=== PATIENT | male | born 1980 | race Caucasian/White ===

== ENCOUNTER 2020-06-05 16:06 | Emergency (ER) | payer OTHER ==
[2020-06-05 16:11] VITALS: RESP 18; TEMP 98.8
[2020-06-05] MEDS ORDERED: ONDANSETRON 4 MG/2 ML VIAL IVP STA (16:28)
[2020-06-05] MEDS ORDERED: SODIUM CHLORIDE 0.9% 2,000 ML IV STA (16:28)
[2020-06-05] MEDS ORDERED: KETOROLAC 15 MG/ML 1 ML VIAL IVP STA (16:28)
[2020-06-05 16:40] LABS: Appearance,Urine Cloudy (Clear); Bilirubin,Urine Negative (Negative); Blood,Urine Large (Negative); Color,Urine Red; Glucose,Urine (UA) Negative (Negative); Ketones,Urine Trace (Negative); Leukocyte Esterase,Urine Small (Negative); Mucus,Urine Moderate /hpf; Nitrite,Urine Negative (Negative); PH, Urine 5.5 (5.0-8.0); Protein,Urine 1+ (Negative); RBC,Urine >182 /hpf (0-5); Specific Gravity,Urine 1.026 (1.001-1.035); Urobilinogen,Urine <2.0 mg/dL (<2.0); WBC,Urine 2 /hpf (0-5)
[2020-06-05 16:52] LABS: Basophils # (A) 0.1 k/uL (0-0.2); Basophils % (A) 1 %; Eosinophils # (A) 0.2 k/uL (0-0.7); Eosinophils % (A) 2 %; HCT 46.9 % (39.0-53.0); HGB 16.5 gm/dL (13.0-17.5); Lymphocytes # (A) 2.1 k/uL (1.0-4.8); Lymphocytes % (A) 21 %; MCH 31.9 pg (25.0-35.0); MCHC 35.1 g/dL (31.0-37.0); MCV 90.7 fL (80.0-100.0); Mean Platelet Volume 8.2; Monocytes # (A) 0.5 k/uL (0-1.0); Monocytes % (A) 5 %; Neutrophils # (A) 7.2 k/uL (1.3-7.7); Neutrophils % (A) 70 %; Platelet Count 202 k/uL (150-450); RBC 5.17 m/uL (4.30-5.90); RDW 12.2 % (11.5-15.5); WBC 10.3 k/uL (3.8-10.6)
[2020-06-05 17:01] LABS: ALT 58 U/L (4-49); AST 58 U/L (17-59); African American GFR (CKD) >90 (>60 ml/min/1.73 sqM); Albumin 4.6 g/dL (3.5-5.0); Alkaline Phosphatase 64 U/L (38-126); Anion Gap 9 mmol/L; Blood Urea Nitrogen 11 mg/dL (9-20); Carbon Dioxide 24 mmol/L (22-30); Chloride 105 mmol/L (98-107); Glucose 109 mg/dL (74-99); Lipase 116 U/L (23-300); Non-African American GFR(CKD) >90 (>60 ml/min/1.73 sqM); Sodium 138 mmol/L (137-145); Total Bilirubin 1.2 mg/dL (0.2-1.3); Total Protein 7.9 g/dL (6.3-8.2)
[2020-06-05 17:02] LABS: Potassium 4.9 mmol/L (3.5-5.1)
--- NOTE | 2020-06-05 17:19 | ED ---
Abdominal Pain HPI - General Chief Complaint: Abdominal Pain Stated Complaint: poss kidney stones Time Seen by Provider: 06/05/20 16:12 Source: patient, RN notes reviewed Mode of arrival: ambulatory Limitations: no limitations - History of Present Illness Initial Comments: 39-year-old male presents emergency Department chief complaint left flank pain. Patient states started around 4 AM. Patient states she's had nausea vomiting no history kidney stones he states his urine is very dark and he states that he less urine output. No prior abdominal surgeries no fevers no chills no other complaints. - Related Data Previous Rx's Medication Instructions Recorded Hydrocodone/Acetaminophen [[place] 1 tab PO Q6HR PRN #12 tab 06/05/20 5-325] Ketorolac [Toradol] 10 mg PO Q8HR #15 tab 06/05/20 Ondansetron Odt [Zofran Odt] 4 mg PO Q8HR PRN #10 tab 06/05/20 Tamsulosin [Flomax] 0.4 mg PO DAILY #7 cap 06/05/20 Allergies Allergy/AdvReac Type Severity Reaction Status Date / Time No Known Allergies Allergy Verified 06/05/20 16:11 Review of Systems ROS Statement: Those systems with pertinent positive or pertinent negative responses have been documented in the HPI. ROS Other: All systems not noted in ROS Statement are negative. Past Medical History Past Medical History: No Reported History History of Any Multi-Drug Resistant Organisms: None Reported Past Surgical History: Orthopedic Surgery Past Psychological History: No Psychological Hx Reported Smoking Status: Current every day smoker Past Alcohol Use History: None Reported Past Drug Use History: None Reported General Exam General appearance: alert, in no apparent distress Head exam: Present: atraumatic, normocephalic, normal inspection Eye exam: Present: normal appearance, PERRL, EOMI. Absent: scleral icterus, conjunctival injection, periorbital swelling ENT exam: Present: normal exam, mucous membranes moist Neck exam: Present: normal inspection. Absent: tenderness, meningismus, lymphadenopathy Respiratory exam: Present: normal lung sounds bilaterally. Absent: respiratory distress, wheezes, rales, rhonchi, stridor Cardiovascular Exam: Present: regular rate, normal rhythm, normal heart sounds. Absent: systolic murmur, diastolic murmur, rubs, gallop, clicks GI/Abdominal exam: Present: soft, tenderness (Minimal left), normal bowel sounds. Absent: distended, guarding, rebound, rigid Back exam: Present: CVA tenderness (L). Absent: CVA tenderness (R) Course Vital Signs 06/05/20 06/05/20 16:09 17:50 Temperature 98.8 F Pulse Rate 100 70 Respiratory 18 18 Rate Blood Pressure 156/98 132/76 O2 Sat by Pulse 98 100 Oximetry Medical Decision Making - Medical Decision Making CT shows evidence of two 3 mm stones in the ureter. Patient's pain is controlled after Toradol. Patient's had no recurrence of vomiting. Patient was well-hydrated will be discharged with pain control, Flomax, antiemetics and follow-up with urology. - Lab Data Result diagrams: 06/05/20 16:47 06/05/20 16:47 Lab Results 06/05/20 06/05/20 06/05/20 Range/Units 16:24 16:47 16:47 WBC 10.3 (3.8-10.6) k/uL RBC 5.17 (4.30-5.90) m/uL Hgb 16.5 (13.0-17.5) gm/dL Hct 46.9 (39.0-53.0) % MCV 90.7 (80.0-100.0) fL MCH 31.9 (25.0-35.0) pg MCHC 35.1 (31.0-37.0) g/dL RDW 12.2 (11.5-15.5) % Plt Count 202 (150-450) k/uL MPV 8.2 Neutrophils % 70 % Lymphocytes % 21 % Monocytes % 5 % Eosinophils % 2 % Basophils % 1 % Neutrophils # 7.2 (1.3-7.7) k/uL Lymphocytes # 2.1 (1.0-4.8) k/uL Monocytes # 0.5 (0-1.0) k/uL Eosinophils # 0.2 (0-0.7) k/uL Basophils # 0.1 (0-0.2) k/uL Sodium 138 (137-145) mmol/L Potassium 4.9 (3.5-5.1) mmol/L Chloride 105 (98-107) mmol/L Carbon Dioxide 24 (22-30) mmol/L Anion Gap 9 mmol/L BUN 11 (9-20) mg/dL Creatinine 0.83 (0.66-1.25) mg/dL Est GFR (CKD-EPI)AfAm >90 (>60 ml/min/1.73 sqM) Est GFR (CKD-EPI)NonAf >90 (>60 ml/min/1.73 sqM) Glucose 109 H (74-99) mg/dL Calcium 9.0 (8.4-10.2) mg/dL Total Bilirubin 1.2 (0.2-1.3) mg/dL AST 58 (17-59) U/L ALT 58 H (4-49) U/L Alkaline Phosphatase 64 (38-126) U/L Total Protein 7.9 (6.3-8.2) g/dL Albumin 4.6 (3.5-5.0) g/dL Lipase 116 (23-300) U/L Urine Color Red Urine Appearance Cloudy (Clear) Urine pH 5.5 (5.0-8.0) Ur Specific [place] 1.026 (1.001-1.035) Urine Protein 1+ H (Negative) Urine Glucose (UA) Negative (Negative) Urine Ketones Trace H (Negative) Urine Blood Large H (Negative) Urine Nitrite Negative (Negative) Urine Bilirubin Negative (Negative) Urine Urobilinogen <2.0 (<2.0) mg/dL Ur Leukocyte Esterase Small H (Negative) Urine RBC >182 H (0-5) /hpf Urine WBC 2 (0-5) /hpf Urine Mucus Moderate H (None) /hpf Disposition Clinical Impression: Ureteral calculus, left Disposition: HOME SELF-CARE Condition: Stable Instructions (If sedation given, give patient instructions): Kidney Stones (ED) Additional Instructions: Please return to the Emergency Department if symptoms worsen or any other concerns. Prescriptions: Tamsulosin [Flomax] 0.4 mg PO DAILY #7 cap Hydrocodone/Acetaminophen [[place] 5-325] 1 tab PO Q6HR PRN #12 tab PRN Reason: Pain Ketorolac [Toradol] 10 mg PO Q8HR #15 tab Ondansetron Odt [Zofran Odt] 4 mg PO Q8HR PRN #10 tab PRN Reason: Nausea Is patient prescribed a controlled substance at d/c from ED?: Yes When asked, does pt state using other controlled substances?: No If prescribed controlled substance>3 days was MAPS reviewed?: Prescribed <3 Days If opioid is for acute pain is fill amount 7 days or less?: Yes If Rx opioid, was Start Talking consent form obtained?: Yes Referrals: None,Stated [Primary Care Provider] - 1-2 days Dylan Osorio MD [STAFF PHYSICIAN] - 1-2 days Time of Disposition: 18:04
--- NOTE | 2020-06-05 17:44 | CT ---
EXAMINATION TYPE: CT abdomen pelvis wo con DATE OF EXAM: 06/05/2020 COMPARISON: None HISTORY: Left flank pain CT DLP: 863.3 mGycm Automated exposure control for dose reduction was used. Images obtained from the diaphragm to the floor the pelvis without contrast. Lung bases are clear. There is no pleural effusion. There is some mild fatty infiltration of the live r. Spleen is intact. There is no pancreatic mass. The stomach is intact. Gallbladder appears normal. The bile ducts are not dilated. There is no adrenal mass. Kidneys have normal size. There is 3 mm calculus lower pole left kidney. Th ere are larger calculi lower pole left kidney that measure up to 5 mm. There appears to be 2 small ca lculi in the lower left ureter that measure 3 mm. The left ureter is not significantly dilated. There is mild fullness of the left renal pelvis compared to the right. I see no sign of obstruction on the right side. There is no retroperitoneal adenopathy. Appendix is posterior and appears normal. There are multiple sigmoid diverticula. There is no evidence of diverticulitis. The lumbar vertebra have normal alignment. Disc spaces are fairly normal. Posterior elements are inta ct. There is no compression fracture. Facet joints are intact. Bony pelvis is intact. Hip joints appe ar normal. IMPRESSION: 2 small obstructing calculi distal left ureter. Multiple left renal calculi. Minimal hydronephrosis. Fatty infiltration of the liver.
[2020-06-05 17:51] VITALS: BP 132/76; PULSE 70
== END 2020-06-05 18:22 | disposition home or self-care (01) ==
LOC: EC 16:06
DX: N20.1 Calculus of ureter (principal); F17.200 Nicotine dependence, unspecified, uncomplicated
CPT/HCPCS: 36415; 93005; 80053; 83690; 85025; 81001; 74176; 99284; 96374; 96375; 96361; J2405; J1885

== ENCOUNTER 2020-06-11 20:45 | Emergency (ER) | payer OTHER ==
[2020-06-11 21:09] VITALS: TEMP 98.8
[2020-06-11] MEDS ORDERED: SODIUM CHLORIDE 0.9% 1,000 ML IV STA (21:34)
[2020-06-11] MEDS ORDERED: KETOROLAC 15 MG/ML 1 ML VIAL IVP STA (21:34)
[2020-06-11 21:55] LABS: Basophils # (A) 0.2 k/uL (0-0.2); Basophils % (A) 2 %; Eosinophils # (A) 0.2 k/uL (0-0.7); Eosinophils % (A) 2 %; HGB 16.1 gm/dL (13.0-17.5); Lymphocytes # (A) 1.7 k/uL (1.0-4.8); Lymphocytes % (A) 16 %; MCH 32.1 pg (25.0-35.0); MCHC 34.9 g/dL (31.0-37.0); MCV 91.8 fL (80.0-100.0); Mean Platelet Volume 7.3; Monocytes # (A) 0.6 k/uL (0-1.0); Monocytes % (A) 5 %; Neutrophils # (A) 7.9 k/uL (1.3-7.7); Neutrophils % (A) 73 %; Platelet Count 328 k/uL (150-450); RBC 5.01 m/uL (4.30-5.90); RDW 12.3 % (11.5-15.5); WBC 10.8 k/uL (3.8-10.6)
[2020-06-11 21:57] LABS: Appearance,Urine Clear (Clear); Bilirubin,Urine Negative (Negative); Blood,Urine Small (Negative); Color,Urine Light Yellow; Glucose,Urine (UA) Negative (Negative); Ketones,Urine Negative (Negative); Leukocyte Esterase,Urine Negative (Negative); Nitrite,Urine Negative (Negative); Protein,Urine Negative (Negative); RBC,Urine 1 /hpf (0-5); Specific Gravity,Urine 1.007 (1.001-1.035); Urobilinogen,Urine <2.0 mg/dL (<2.0); WBC,Urine <1 /hpf (0-5)
[2020-06-11 22:06] LABS: ALT 31 U/L (4-49); AST 30 U/L (17-59); African American GFR (CKD) >90 (>60 ml/min/1.73 sqM); Alkaline Phosphatase 56 U/L (38-126); Anion Gap 7 mmol/L; Blood Urea Nitrogen 18 mg/dL (9-20); Calcium 8.8 mg/dL (8.4-10.2); Carbon Dioxide 27 mmol/L (22-30); Chloride 102 mmol/L (98-107); Glucose 103 mg/dL (74-99); Non-African American GFR(CKD) >90 (>60 ml/min/1.73 sqM); Potassium 4.3 mmol/L (3.5-5.1); Sodium 136 mmol/L (137-145); Total Bilirubin 0.5 mg/dL (0.2-1.3); Total Protein 7.1 g/dL (6.3-8.2)
--- NOTE | 2020-06-11 22:56 | CT ---
EXAMINATION TYPE: CT abdomen pelvis wo con DATE OF EXAM: 06/11/2020 COMPARISON: 06/05/2020 HISTORY: left flank pain CT DLP: 939.3 mGycm Automated exposure control for dose reduction was used. Images obtained from the diaphragm to the floor the pelvis without contrast. Lung bases are clear. There is no pleural effusion. Heart size is normal. There is no pericardial eff usion. Liver spleen pancreas stomach gallbladder appear normal. Bile ducts are not dilated. There is no adrenal mass. There is left-sided hydronephrosis. Kidneys have fairly normal size. There is 1 cm calculus lower pole left kidney. There is left-sided hydroureter with 5 mm calculus in the di stal left ureter close to the urinary bladder. Bladder distends smoothly. There is no inguinal hernia. There is no free fluid in the pelvis. There is no evidence of a pelvic m ass. There are multiple sigmoid diverticula. There is no evidence of diverticulitis. Appendix appears normal. There is no mesenteric edema. There is no ascites or free air. There is no bowel obstruction. The lum bar vertebra have normal alignment. There is no compression fracture. Posterior elements are intact. The bony pelvis is intact. IMPRESSION: Obstructing calculus distal left ureter with left-sided hydronephrosis and hydroureter. Obstruction i s new compared to recent exam. Large calculus lower pole left kidney.
[2020-06-11] MEDS ORDERED: HYDROmorphone 1 MG/ML 1 ML SYRINGE IVP STA (23:31)
[2020-06-11] MEDS ORDERED: ONDANSETRON 4 MG/2 ML VIAL IVP STA (23:31)
--- NOTE | 2020-06-11 23:42 | ED ---
Male Urogenital HPI - General Chief complaint: Urogenital Stated complaint: Revisit Kidney Stone Source: patient Limitations: no limitations - History of Present Illness Initial comments: 39-year-old previously healthy male who presents to the emergency department with reported left flank pain. Patient was seen on the for similar complaint and was diagnosed with 2 left ureteral stones. Patient was discharged home and was taking his medications as directed. States that he had resolution of his pain on for which he thought that he passed both stones. He should then had recurrence of his flank pain starting this evening and he did feel similar. He admits to hematuria. Denies dysuria or inability to void. Denies diarrhea, constipation, melenic stools or hematochezia. No chest pain or shortness of breath. No other alleviating, precipitating or modifying factors - Related Data Previous Rx's Medication Instructions Recorded HYDROcodone/APAP 7.5-325MG [[place] 1 tab PO Q6HR PRN 3 Days #12 tab 06/11/20 7.5-325] Ondansetron Odt [Zofran Odt] 4 mg PO Q8HR PRN #10 tab 06/11/20 Tamsulosin HCl [Flomax] 0.4 mg PO DAILY #10 cap 06/11/20 Allergies Allergy/AdvReac Type Severity Reaction Status Date / Time No Known Allergies Allergy Verified 06/11/20 21:47 Review of Systems ROS Statement: Those systems with pertinent positive or pertinent negative responses have been documented in the HPI. ROS Other: All systems not noted in ROS Statement are negative. Past Medical History Past Medical History: No Reported History Additional Past Medical History / Comment(s): kidney stones. History of Any Multi-Drug Resistant Organisms: None Reported Past Surgical History: Orthopedic Surgery Past Psychological History: No Psychological Hx Reported Smoking Status: Current every day smoker Past Alcohol Use History: Occasional Past Drug Use History: None Reported General Exam Limitations: no limitations Course Vital Signs 06/11/20 06/12/20 21:05 00:05 Temperature 98.8 F Pulse Rate 97 83 Respiratory 20 18 Rate Blood Pressure 153/98 150/90 O2 Sat by Pulse 98 100 Oximetry Medical Decision Making - Medical Decision Making Upon arrival patient was placed into room 2. A thorough history and physical exam was performed. Patient is requesting repeat CT. The risks of radiation discussed the patient and he understood this. Continues to request CT imaging over x-ray ultrasound. I will try scissor conducted. Urinalysis demonstrated small blood. Repeat CT demonstrates obstructing calculus distal left ureter with left-sided hydronephrosis in her ureter. He was given Toradol for pain control. Patient is reevaluated and reports that his pain did resolve however it is no coming back. Because of this the patient was given a dose of Dilaudid and Zofran for pain and nausea. I discussed diagnosis, differential treatment options. Patient is agreeable to going home at this time. I will refill his prescription for Zofran, [place] and Flomax. Patient is to take these medications as directed at home and called the urologist for follow-up. If he has any new or worsening symptoms he should return to the emergency department including uncontrolled pain for the patient understood. He is given written and verbal discharge instructions and discharged home in stable condition - Lab Data Result diagrams: 06/11/20 21:46 06/11/20 21:46 Lab Results 06/11/20 06/11/20 06/11/20 Range/Units 21:46 21:46 21:46 WBC 10.8 H (3.8-10.6) k/uL RBC 5.01 (4.30-5.90) m/uL Hgb 16.1 (13.0-17.5) gm/dL Hct 46.0 (39.0-53.0) % MCV 91.8 (80.0-100.0) fL MCH 32.1 (25.0-35.0) pg MCHC 34.9 (31.0-37.0) g/dL RDW 12.3 (11.5-15.5) % Plt Count 328 (150-450) k/uL MPV 7.3 Neutrophils % 73 % Lymphocytes % 16 % Monocytes % 5 % Eosinophils % 2 % Basophils % 2 % Neutrophils # 7.9 H (1.3-7.7) k/uL Lymphocytes # 1.7 (1.0-4.8) k/uL Monocytes # 0.6 (0-1.0) k/uL Eosinophils # 0.2 (0-0.7) k/uL Basophils # 0.2 (0-0.2) k/uL Sodium 136 L (137-145) mmol/L Potassium 4.3 (3.5-5.1) mmol/L Chloride 102 (98-107) mmol/L Carbon Dioxide 27 (22-30) mmol/L Anion Gap 7 mmol/L BUN 18 (9-20) mg/dL Creatinine 0.84 (0.66-1.25) mg/dL Est GFR (CKD-EPI)AfAm >90 (>60 ml/min/1.73 sqM) Est GFR (CKD-EPI)NonAf >90 (>60 ml/min/1.73 sqM) Glucose 103 H (74-99) mg/dL Calcium 8.8 (8.4-10.2) mg/dL Total Bilirubin 0.5 (0.2-1.3) mg/dL AST 30 (17-59) U/L ALT 31 (4-49) U/L Alkaline Phosphatase 56 (38-126) U/L Total Protein 7.1 (6.3-8.2) g/dL Albumin 4.0 (3.5-5.0) g/dL Urine Color Light Yellow Urine Appearance Clear (Clear) Urine pH 5.0 (5.0-8.0) Ur Specific [place] 1.007 (1.001-1.035) Urine Protein Negative (Negative) Urine Glucose (UA) Negative (Negative) Urine Ketones Negative (Negative) Urine Blood Small H (Negative) Urine Nitrite Negative (Negative) Urine Bilirubin Negative (Negative) Urine Urobilinogen <2.0 (<2.0) mg/dL Ur Leukocyte Esterase Negative (Negative) Urine RBC 1 (0-5) /hpf Urine WBC <1 (0-5) /hpf Disposition Clinical Impression: Ureteral calculus, left, Left flank pain Disposition: HOME SELF-CARE Condition: Stable Instructions (If sedation given, give patient instructions): Kidney Stones (ED) Additional Instructions: Please call and make an appointment with the urologist. Return to the ED for any new or worsening symptoms Prescriptions: Tamsulosin HCl [Flomax] 0.4 mg PO DAILY #10 cap HYDROcodone/APAP 7.5-325MG [[place] 7.5-325] 1 tab PO Q6HR PRN 3 Days #12 tab PRN Reason: Pain Ondansetron Odt [Zofran Odt] 4 mg PO Q8HR PRN #10 tab PRN Reason: Nausea Is patient prescribed a controlled substance at d/c from ED?: Yes When asked, does pt state using other controlled substances?: No If prescribed controlled substance>3 days was MAPS reviewed?: Prescribed <3 Days If opioid is for acute pain is fill amount 7 days or less?: Yes If Rx opioid, was Start Talking consent form obtained?: Yes Referrals: None,Stated [Primary Care Provider] - 1-2 days Nabeel Friedman MD [STAFF PHYSICIAN] - 1-2 days Time of Disposition: 23:52
[2020-06-12 00:06] VITALS: BP 150/90; PULSE 83; RESP 18
== END 2020-06-12 00:21 | disposition home or self-care (01) ==
LOC: EC 20:45
DX: N13.2 Hydronephrosis with renal and ureteral calculous obstruction (principal); F17.200 Nicotine dependence, unspecified, uncomplicated
CPT/HCPCS: 36415; 80053; 85025; 81001; 74176; 99284; 96374; 96375 ×2; 96361 ×2; J2405; J1170; J1885

== ENCOUNTER 2021-11-25 13:35 | Emergency (ER) | payer OTHER ==
[2021-11-25 14:38] VITALS: RESP 18
[2021-11-25 15:05] LABS: Appearance,Urine Clear (Clear); Bilirubin,Urine Negative (Negative); Blood,Urine Negative (Negative); Color,Urine Yellow; Glucose,Urine (UA) Negative (Negative); Leukocyte Esterase,Urine Negative (Negative); Nitrite,Urine Negative (Negative); Protein,Urine Negative (Negative); Specific Gravity,Urine 1.015 (1.001-1.035); Urobilinogen,Urine <2.0 mg/dL (<2.0)
[2021-11-25 15:07] LABS: Ketones,Urine 2+ (Negative)
[2021-11-25] MEDS ORDERED: KETOROLAC 15 MG/ML 1 ML VIAL IVP STA (15:07)
[2021-11-25] MEDS ORDERED: SODIUM CHLORIDE 0.9% 1,000 ML IV STA (15:07)
[2021-11-25] MEDS ORDERED: ONDANSETRON 4 MG/2 ML VIAL IVP STA (15:07)
--- NOTE | 2021-11-25 15:12 | ED ---
Abdominal Pain HPI <NenaDhara Stewart - Last Filed: 11/25/21 17:51> - General Source: patient, RN notes reviewed, old records reviewed Mode of arrival: ambulatory Limitations: no limitations - History of Present Illness MD Complaint: flank pain (left flank) Severity scale (1-10): 10 Associated Symptoms: nausea <Tyler Couch - Last Filed: 11/26/21 12:01> - General Chief Complaint: Abdominal Pain Stated Complaint: kidney stones Time Seen by Provider: 11/25/21 15:05 - History of Present Illness Initial Comments: Patient complaining of left flank pain since 8:30 this morning. He does have a history of kidney stones which he states has passed on his own with no intervention. States feels like another stone. He states his last stone was one year ago. He has nausea and no vomiting. Denies any fevers. (Tyler Couch) - Related Data Previous Rx's Medication Instructions Recorded HYDROcodone/APAP 7.5-325MG [[place] 1 tab PO Q6HR PRN 3 Days #12 tab 06/11/20 7.5-325] Ondansetron Odt [Zofran Odt] 4 mg PO Q8HR PRN #10 tab 06/11/20 Tamsulosin HCl [Flomax] 0.4 mg PO DAILY #10 cap 06/11/20 HYDROcodone/APAP 7.5-325MG [[place] 1 tab PO Q4HR PRN 3 Days #18 tab 11/25/21 7.5-325] Ondansetron Odt [Zofran Odt] 4 mg PO Q8HR PRN #10 tab 11/25/21 Tamsulosin [Flomax] 0.4 mg PO DAILY #7 cap 11/25/21 Allergies Allergy/AdvReac Type Severity Reaction Status Date / Time No Known Allergies Allergy Verified 11/25/21 14:38 Review of Systems ROS Other: All systems not noted in ROS Statement are negative. <Dhara Barrett - Last Filed: 11/25/21 17:51> ROS Other: All systems not noted in ROS Statement are negative. <Tyler Couch - Last Filed: 11/26/21 12:01> ROS Statement: Those systems with pertinent positive or pertinent negative responses have been documented in the HPI. Past Medical History Past Medical History: No Reported History Additional Past Medical History / Comment(s): kidney stones. History of Any Multi-Drug Resistant Organisms: None Reported Past Surgical History: Orthopedic Surgery Past Psychological History: No Psychological Hx Reported Smoking Status: Current every day smoker Past Alcohol Use History: Occasional Past Drug Use History: None Reported <Tyler Couch - Last Filed: 11/26/21 12:01> General Exam Limitations: no limitations General appearance: alert, in no apparent distress Head exam: Present: atraumatic Eye exam: Present: normal appearance Respiratory exam: Present: normal lung sounds bilaterally. Absent: respiratory distress, accessory muscle use Cardiovascular Exam: Present: tachycardia, normal heart sounds GI/Abdominal exam: Present: soft. Absent: distended, tenderness Back exam: Absent: tenderness, CVA tenderness (R), CVA tenderness (L) Neurological exam: Present: alert, oriented X3, normal gait Psychiatric exam: Present: normal affect, normal mood Skin exam: Present: warm, dry, normal color. Absent: cyanosis, diaphoretic, petechiae, pallor <Tyler Couch - Last Filed: 11/26/21 12:01> Course - Reevaluation(s) Time: 16:23 <Tyler Couch - Last Filed: 11/26/21 12:01> Vital Signs 11/25/21 11/25/21 11/25/21 14:37 15:33 16:41 Temperature 98.3 F Pulse Rate 100 83 86 Respiratory 18 18 18 Rate Blood Pressure 135/86 132/80 155/103 O2 Sat by Pulse 96 97 98 Oximetry 11/25/21 18:23 Temperature 97.8 F Pulse Rate 88 Respiratory 18 Rate Blood Pressure 141/97 O2 Sat by Pulse 96 Oximetry - Reevaluation(s) Reevaluation #1: 11/25/21 16:23 Patient's pain was not relieved with Toradol. X-ray shows a 8 millimeter stone lower pole left kidney not changed from 06/11/2020. No evidence of blood in the urine. Patient was sent for CT which initially was not initially ordered as he's had 2 abdominal CTs this year. (Tyler Couch) Medical Decision Making - Lab Data Result diagrams: 11/25/21 15:42 11/25/21 15:42 <Dhara Barrett - Last Filed: 11/25/21 17:51> - Lab Data Result diagrams: 11/25/21 15:42 11/25/21 15:42 <Tyler Couch - Last Filed: 11/26/21 12:01> - Medical Decision Making Patient was evaluated by myself. I reviewed the patient's labs which demonstrated with blood cell count of 13.3. Lactic 2.2. UA shows 2+ ketones. CT of abdomen and pelvis demonstrates obstructing calculus in the left lower ureter. Patient is resting comfortably after Dilaudid and Toradol ad ministration. He feels comfortable going home. Patient will be discharged with pain medications, Zofran and Flomax. Instructed to increase fluid intake and strain all urine. Recommend that he follow-up with the urologist within one week and return for any new or worsening symptoms. Patient agreed and was discharged home in stable condition (Dhara Barrett) KUB shows 8mm calculus in lower pole left kidney not changed from CT scan performed in May of this year. Lactic acid is 2.2 and patient was given 1 L normal saline. He was given Toradol for pain with no relief. He was given a dose of Dilaudid and sent for CT after explaining the risks associated with [facility] CT's this year. Patient is agreeable to the CT scan. CT is pending. Case was signed out to Dr. Barrett. (Tyler Couch) - Lab Data Lab Results 11/25/21 11/25/21 11/25/21 Range/Units 14:55 15:42 15:42 WBC 13.4 H (3.8-10.6) k/uL RBC 5.24 (4.30-5.90) m/uL Hgb 16.7 (13.0-17.5) gm/dL Hct 49.0 (39.0-53.0) % MCV 93.4 (80.0-100.0) fL MCH 31.9 (25.0-35.0) pg MCHC 34.1 (31.0-37.0) g/dL RDW 12.5 (11.5-15.5) % Plt Count 237 (150-450) k/uL MPV 7.7 Neutrophils % 82 % Lymphocytes % 11 % Monocytes % 5 % Eosinophils % 1 % Basophils % 1 % Neutrophils # 11.0 H (1.3-7.7) k/uL Lymphocytes # 1.4 (1.0-4.8) k/uL Monocytes # 0.7 (0-1.0) k/uL Eosinophils # 0.1 (0-0.7) k/uL Basophils # 0.1 (0-0.2) k/uL Sodium 133 L (137-145) mmol/L Potassium 4.4 (3.5-5.1) mmol/L Chloride 102 (98-107) mmol/L Carbon Dioxide 19 L (22-30) mmol/L Anion Gap 12 mmol/L BUN 8 L (9-20) mg/dL Creatinine 1.15 (0.66-1.25) mg/dL Est GFR (CKD-EPI)AfAm >90 (>60 ml/min/1.73 sqM) Est GFR (CKD-EPI)NonAf 79 (>60 ml/min/1.73 sqM) Glucose 92 (74-99) mg/dL Lactic Ac Sepsis Rflx Plasma Lactic Acid Matt (0.7-2.0) mmol/L Calcium 8.7 (8.4-10.2) mg/dL Total Bilirubin 0.7 (0.2-1.3) mg/dL AST 44 (17-59) U/L ALT 42 (4-49) U/L Alkaline Phosphatase 74 (38-126) U/L Total Protein 7.4 (6.3-8.2) g/dL Albumin 4.6 (3.5-5.0) g/dL Urine Color Yellow Urine Appearance Clear (Clear) Urine pH 5.0 (5.0-8.0) Ur Specific [place] 1.015 (1.001-1.035) Urine Protein Negative (Negative) Urine Glucose (UA) Negative (Negative) Urine Ketones 2+ H (Negative) Urine Blood Negative (Negative) Urine Nitrite Negative (Negative) Urine Bilirubin Negative (Negative) Urine Urobilinogen <2.0 (<2.0) mg/dL Ur Leukocyte Esterase Negative (Negative) 11/25/21 11/25/21 Range/Units 15:42 16:29 WBC (3.8-10.6) k/uL RBC (4.30-5.90) m/uL Hgb (13.0-17.5) gm/dL Hct (39.0-53.0) % MCV (80.0-100.0) fL MCH (25.0-35.0) pg MCHC (31.0-37.0) g/dL RDW (11.5-15.5) % Plt Count (150-450) k/uL MPV Neutrophils % % Lymphocytes % % Monocytes % % Eosinophils % % Basophils % % Neutrophils # (1.3-7.7) k/uL Lymphocytes # (1.0-4.8) k/uL Monocytes # (0-1.0) k/uL Eosinophils # (0-0.7) k/uL Basophils # (0-0.2) k/uL Sodium (137-145) mmol/L Potassium (3.5-5.1) mmol/L Chloride (98-107) mmol/L Carbon Dioxide (22-30) mmol/L Anion Gap mmol/L BUN (9-20) mg/dL Creatinine (0.66-1.25) mg/dL Est GFR (CKD-EPI)AfAm (>60 ml/min/1.73 sqM) Est GFR (CKD-EPI)NonAf (>60 ml/min/1.73 sqM) Glucose (74-99) mg/dL Lactic Ac Sepsis Rflx Y Plasma Lactic Acid Matt 2.2 H* (0.7-2.0) mmol/L Calcium (8.4-10.2) mg/dL Total Bilirubin (0.2-1.3) mg/dL AST (17-59) U/L ALT (4-49) U/L Alkaline Phosphatase (38-126) U/L Total Protein (6.3-8.2) g/dL Albumin (3.5-5.0) g/dL Urine Color Urine Appearance (Clear) Urine pH (5.0-8.0) Ur Specific [place] (1.001-1.035) Urine Protein (Negative) Urine Glucose (UA) (Negative) Urine Ketones (Negative) Urine Blood (Negative) Urine Nitrite (Negative) Urine Bilirubin (Negative) Urine Urobilinogen (<2.0) mg/dL Ur Leukocyte Esterase (Negative) Disposition Is patient prescribed a controlled substance at d/c from ED?: Yes When asked, does pt state using other controlled substances?: No If prescribed controlled substance>3 days was MAPS reviewed?: Prescribed <3 Days Time of Disposition: 17:45 <Dhara Barrett - Last Filed: 11/25/21 17:51> <Tyler Couch - Last Filed: 11/26/21 12:01> Clinical Impression: Ureteral stone, Hydronephrosis Disposition: HOME SELF-CARE Condition: Stable Instructions (If sedation given, give patient instructions): Kidney Stones (ED) Additional Instructions: Please alternate taking Motrin 600 mg with the [place] every 4 hours for pain control. Take the Flomax daily. Increase fluid intake. Follow up with the urologist for further management of your stones return for any new or worsening symptoms Prescriptions: Tamsulosin [Flomax] 0.4 mg PO DAILY #7 cap HYDROcodone/APAP 7.5-325MG [[place] 7.5-325] 1 tab PO Q4HR PRN 3 Days #18 tab PRN Reason: Pain Ondansetron Odt [Zofran Odt] 4 mg PO Q8HR PRN #10 tab PRN Reason: Nausea Referrals: Gordy Contreras MD [Primary Care Provider] - 1-2 days Nabeel Friedman MD [STAFF PHYSICIAN] - 1-2 days
[2021-11-25 16:16] LABS: Basophils # (A) 0.1 k/uL (0-0.2); Basophils % (A) 1 %; Eosinophils # (A) 0.1 k/uL (0-0.7); Eosinophils % (A) 1 %; HGB 16.7 gm/dL (13.0-17.5); Lymphocytes # (A) 1.4 k/uL (1.0-4.8); Lymphocytes % (A) 11 %; MCH 31.9 pg (25.0-35.0); MCHC 34.1 g/dL (31.0-37.0); MCV 93.4 fL (80.0-100.0); Mean Platelet Volume 7.7; Monocytes # (A) 0.7 k/uL (0-1.0); Monocytes % (A) 5 %; Neutrophils % (A) 82 %; Platelet Count 237 k/uL (150-450); RBC 5.24 m/uL (4.30-5.90); RDW 12.5 % (11.5-15.5); WBC 13.4 k/uL (3.8-10.6)
--- NOTE | 2021-11-25 16:18 | XR ---
EXAMINATION TYPE: XR KUB DATE OF EXAM: 11/25/2021 COMPARISON: NONE HISTORY: Left flank pain TECHNIQUE: 2 views upright FINDINGS: There is a 8 mm calcification over the lower pole left kidney. Bowel gas pattern is normal. No sign of intestinal obstruction or pneumoperitoneum. Fecal pattern is normal. Lung bases are clear of consolidation. IMPRESSION: Left renal calculus. Calculus not changed compared to CT scan 06/11/2020. Nonacute abdomen .
[2021-11-25] MEDS ORDERED: HYDROmorphone 1 MG/ML 1 ML SYRINGE IVP STA (16:22)
[2021-11-25 16:26] LABS: ALT 42 U/L (4-49); AST 44 U/L (17-59); African American GFR (CKD) >90 (>60 ml/min/1.73 sqM); Albumin 4.6 g/dL (3.5-5.0); Alkaline Phosphatase 74 U/L (38-126); Anion Gap 12 mmol/L; Blood Urea Nitrogen 8 mg/dL (9-20); Calcium 8.7 mg/dL (8.4-10.2); Carbon Dioxide 19 mmol/L (22-30); Chloride 102 mmol/L (98-107); Glucose 92 mg/dL (74-99); Non-African American GFR(CKD) 79 (>60 ml/min/1.73 sqM); Potassium 4.4 mmol/L (3.5-5.1); Sodium 133 mmol/L (137-145); Total Bilirubin 0.7 mg/dL (0.2-1.3); Total Protein 7.4 g/dL (6.3-8.2)
--- NOTE | 2021-11-25 17:15 | CT ---
EXAMINATION TYPE: CT abdomen pelvis wo con DATE OF EXAM: 11/25/2021 COMPARISON: 06/11/2020 HISTORY: Left sided flank pain. CT DLP: 1025.4 mGycm Automated exposure control for dose reduction was used. Images obtained from the diaphragm to the floor the pelvis with no contrast. Lung bases are clear. No pleural effusion. Heart size is normal. No pericardial effusion. There is diffuse fatty replacement of the liver. Gallbladder is intact. Spleen is intact. There is no pancreatic mass. Stomach is intact. There is no adrenal mass. Left kidney shows hydronephrosis and perinephric edema. There is left-sided hydroureter with 5 mm obstructing calculus in the lower left ureter. Bladder distends smoothly. Appe ndix is posterior and appears normal. There is no retroperitoneal adenopathy. Right kidney shows no s ign of stone or obstruction. There is 9 mm calculus lower pole left kidney. The bladder distends smoothly. No inguinal hernia. No free fluid in the pelvis. No pelvic mass. There is no mesenteric edema. There is no ascites or free air. There are multiple sigmoid diverticula . No diverticulitis. The lumbar vertebrae have normal alignment. No compression fracture. IMPRESSION: Obstructing calculus in the lower left ureter. There is clearing of the calculus in the distal left u reter compared to old exam. Left renal calculus without change. Colonic diverticulosis. Fatty infiltration of the liver.
[2021-11-25] MEDS ORDERED: HYDROmorphone 0.5 MG/0.5 ML SYRINGE IVP STA (17:45)
[2021-11-25 18:25] VITALS: BP 141/97; PULSE 88; TEMP 97.8
== END 2021-11-25 18:24 | disposition home or self-care (01) ==
LOC: EC 13:35
DX: N13.30 Unspecified hydronephrosis (principal); F17.200 Nicotine dependence, unspecified, uncomplicated
CPT/HCPCS: 36415; 80053; 83605; 85025; 81003; 74018; 74176; 99284; 96374; 96375; 96361; 96376; J2405; J1170 ×2; J1885